=== PATIENT | male | born 1935 | race Caucasian/White ===

== ENCOUNTER 2017-10-24 08:15 | Day surgery (SDC) | payer MEDICARE, BC ==
[2017-10-24] MEDS ORDERED: Midazolam 1 MG/ML 2 ML SDV ONE (08:45)
[2017-10-24] MEDS ORDERED: Propofol 200 MG/20 ML SDV ONE (08:45)
[2017-10-24] MEDS ORDERED: Lidocaine 0.5% 50 ML SDV ONE (08:45)
[2017-10-24] MEDS ORDERED: fentaNYL 100 MCG/2 ML SDV ONE (08:45)
[2017-10-24] MEDS ORDERED: Lactated Ringers 1,000 ML IV SCH (09:00)
[2017-10-24] MEDS ORDERED: Clindamycin Phosphate 900 MG in Sodium Chloride 0.9% 100 ML IV ONE (09:30)
[2017-10-24] MEDS ORDERED: Povidone-Iodine 10% Soln 118.25 ML Bottle ONE (10:02)
[2017-10-24] MEDS ORDERED: Dexamethasone 4 MG/ML 5 ML MDV ONE (10:02)
[2017-10-24] MEDS ORDERED: Bupivacaine 0.5% 50 ML MDV ONE (10:02)
[2017-10-24] MEDS ORDERED: Ketorolac 60 MG/2 ML SDV IM ONE (11:33)
[2017-10-24] MEDS ORDERED: Acetaminophen/HYDROcodone 325-5 MG Tab PO PRN (11:34)
[2017-10-24 11:48] VITALS: BP 144/76
--- NOTE | 2017-10-24 18:14 | OR ---
DATE OF PROCEDURE: 10/24/2017 PREOPERATIVE DIAGNOSIS: Left carpal tunnel syndrome. POSTOPERATIVE DIAGNOSIS: Left carpal tunnel syndrome. PROCEDURE: Left carpal tunnel release. PERSONNEL SPECIALIST: ISABEL Prajapati. Physician community assistant, Malu Ely NP, played an essential role in assisting in this case, helping to position the patient, retract structures as needed, as well as suturing and cutting sutures as indicated. Her presence improved patient's safety and decreased operative time. ANESTHESIA: Lolly block and conscious sedation. FLUIDS: Lactated Ringer solution. ESTIMATED BLOOD LOSS: Zero. COMPLICATIONS: None. SPECIMENS: None. DISCHARGE DISPOSITION: Stable to PACU. INDICATIONS FOR THE PROCEDURE: The patient was seen preoperatively in the clinic. He had had a left carpal tunnel release done 20 years ago. He was having the exact same symptoms. This occurred after he had a left shoulder replacement done on July 11, 2017. He had failed nonoperative treatment. He had an EMG showing moderate carpal tunnel syndrome as well as a C6 radiculopathy. Risks and benefits of the procedure were explained to the patient. Informed consent was obtained. DETAILS OF THE PROCEDURE: The patient was seen preoperatively by myself and the Anesthesia staff in the preop holding area where the operative site was marked. He was brought to the operative suite by Anesthesia staff where Whitmer block was administered plus conscious sedation. The left upper extremity was then prepped and draped in a sterile manner. Time- out was called identifying the correct patient, correct procedure, the correct site, and antibiotics had begun within appropriate period of time. The incision was made just proximal in line with the 1st metacarpal as well as in line with the radial border of the 4th digit, extending 1.5 cm proximally. A self-retaining retractor was used. Bleeding was controlled by bipolar electrocautery. There was minimal bleeding. I went down to the level of the transverse carpal ligament and then went through using a #15 blade. I then undermined the deep palmar fascia proximally and distally with the Cisco and then under direct visualization using a Ragnell retractor, went through the transverse carpal ligament with the Otf proximally and distally. After a thorough release had been done, I then copiously irrigated with saline and placed a small amount of Decadron, and then closed the wound with 3-0 nylon followed by sterile dressing. Anesthesia let the tourniquet down from the Whitmer block when appropriate and then the patient was taken back to the PACU in stable condition. Umesh Palencia DO /[id number]
== END 2017-10-24 12:10 | disposition home or self-care (01) ==
LOC: JP.SDS 08:15
PROVIDERS: ATTEND Orthopaedic Surgery
DX: G56.02 Carpal tunnel syndrome, left upper limb (principal); I25.10 Atherosclerotic heart disease of native coronary artery without angina pectoris; I10 Essential (primary) hypertension; J44.9 Chronic obstructive pulmonary disease, unspecified; K21.9 Gastro-esophageal reflux disease without esophagitis; N40.0 Benign prostatic hyperplasia without lower urinary tract symptoms; E11.9 Type 2 diabetes mellitus without complications; Z88.0 Allergy status to penicillin; Z88.1 Allergy status to other antibiotic agents; Z88.8 Allergy status to other drugs, medicaments and biological substances; Z91.040 Latex allergy status; Z91.09 Other allergy status, other than to drugs and biological substances; Z79.82 Long term (current) use of aspirin; Z79.899 Other long term (current) drug therapy; Z87.891 Personal history of nicotine dependence
CPT/HCPCS: 64721; J1100; J1885; J2250; J2704; J3010; J7030; J7120; S0077

== ENCOUNTER 2020-02-17 09:11 | Day surgery (SDC) | payer BC, MEDICARE ==
[~2020-02-17 09:11] MED LIST: Midazolam 1 MG/ML 2 ML SDV ONE; Propofol 200 MG/20 ML SDV ONE; fentaNYL 100 MCG/2 ML SDV ONE
[2020-02-17] MEDS ORDERED: Dextrose 5%-Lactated Ringers 1,000 ML IV SCH (10:00)
[2020-02-17] MEDS ORDERED: Propofol 200 MG/20 ML SDV ONE (12:19)
[2020-02-17 13:54] VITALS: BP 136/78; PULSE 63
--- NOTE | 2020-02-26 19:28 | OR ---
DATE OF PROCEDURE: 02/17/2020 SURGEON: Aravind Palencia MD PREOPERATIVE DIAGNOSIS: History of colon carcinoma. POSTOPERATIVE DIAGNOSES: 1. History of colon carcinoma. 2. Multiple recurrent colon polyps. OPERATIVE PROCEDURE: Flexible colonoscopy with: 1. Polypectomy by snare technique of multiple colon polyps (31351). 2. Biopsies of small polyp in the hepatic flexure (25364). ANESTHESIA: IV sedation. INDICATION FOR PROCEDURE: This is an 84-year-old with history of colon carcinoma, presenting for followup colonoscopy. Plan is to proceed with colonoscopy with biopsies and/or polypectomy as indicated. Potential risks including bleeding and perforation were discussed, and the patient wishes to proceed. DETAILS OF PROCEDURE: The patient was taken to the operating room and placed in a left lateral decubitus position. IV sedation was administered, after which the initial digital rectal exam was performed and was unremarkable. Colonoscope was then passed into the rectum with retroflexion revealing uncomplicated hemorrhoidal columns. Scope was eventually passed to the level of the cecum. This included passes through the previous colorectal anastomosis on the left side. The patient had no areas of colitis or diverticular disease. There were multiple polyps ranging from 2 mm up to around 10 mm. These were located at 4 locations in the hepatic flexure area. Three of these were removed by means of snare technique. The other was quite tiny and was removed by biopsy forceps. Otherwise, the patient had additional polyp in the mid transverse colon, the splenic flexure, descending colon, and distal descending colon just above the anastomosis. These were all removed by snare technique and all individually sent for histologic evaluation. Good hemostasis was noted. The procedure then concluded. The patient was taken to the recovery room in satisfactory condition. There were no evident complications. Assuming that all of the polyps taken are benign, the next colonoscopy should probably be in another 2 years, given what appears to be fairly aggressive tendency to form colonic polyps. Aravind Palencia MD /[id number]
== END 2020-02-17 13:45 | disposition home or self-care (01) ==
LOC: JP.SDS 09:11
PROVIDERS: ATTEND Surgery
DX: Z12.11 Encounter for screening for malignant neoplasm of colon (principal); D12.3 Benign neoplasm of transverse colon; D12.4 Benign neoplasm of descending colon; J44.9 Chronic obstructive pulmonary disease, unspecified; I11.0 Hypertensive heart disease with heart failure; I50.9 Heart failure, unspecified; K21.9 Gastro-esophageal reflux disease without esophagitis; E11.9 Type 2 diabetes mellitus without complications; Z98.890 Other specified postprocedural states; Z85.038 Personal history of other malignant neoplasm of large intestine; Z88.8 Allergy status to other drugs, medicaments and biological substances
CPT/HCPCS: 45380; 45385; 88305; J2250; J2704; J3010; J7121